=== PATIENT | female | born 1985 | race Caucasian/White ===

== ENCOUNTER 2017-09-28 12:14 | Inpatient (IN) ==
[2017-09-28] MEDS ORDERED: MORPHINE 10 MG/ML SYRINGE IVP STA ×3 (12:32→15:18)
[2017-09-28] MEDS ORDERED: ZOFRAN 4 MG/2 ML IVP STA (12:32)
[2017-09-28] MEDS ORDERED: SODIUM CHLORIDE 1,000 ML IV STA (14:12)
--- NOTE | 2017-09-28 15:06 | CT ---
EXAM: CT Abdomen with contrast. CT Pelvis with contrast. HISTORY: Mid upper abdominal pain radiating to the back. Previous cholecystectomy. COMPARISON: None available. TECHNIQUE: Multiple axial images of the abdomen and pelvis were obtained following intravenous admin istration of 75 mL of Omnipaque-300, low osmolar. Images were reformatted in the coronal plane. FINDINGS: The lung bases are clear. Osseous structures are within normal limits. Gallbladder is absent. No fluid collections are seen at the cholecystectomy site. The liver, pancre as, spleen, adrenal glands, and kidneys are unremarkable. The bowel is normal in course and caliber without evidence for obstruction or inflammatory process. The appendix is normal. Uterus demonstrates normal contour. Urinary bladder is not well distended. No free fluid, free air or lymphadenopathy identified. IMPRESSION: No acute abnormality within the abdomen or pelvis.
--- NOTE | 2017-09-28 15:09 | ED.PDOC ---
General ED Provider: Dr. SENDY YO Chief Complaint: Abdominal Pain Stated Complaint: ABDOMINAL PAIN Time Seen by Physician: 12:20 Mode of Arrival: Walk-In Information Source: Patient Exam Limitations: No limitations Nursing and Triage Documentation Reviewed and Agree: Yes (SEEN WITH NURSE AND SPOSE AT ALL TIMES ) GI Complaint Exam - Abdominal Pain Complaint/Exam Onset: Gradual Duration: 1 DAY Symptoms Are: Still present Timing: Constant Initial Severity: Moderate Current Severity: Moderate Location of Pain: Epigastric Radiates To: Denies: Back, Flank Character: Reports: Cramping Aggravating: Reports: None Alleviating: Reports: Medication Associated Signs and Symptoms: Reports: Nausea, Vomiting. Denies: Diaphoresis, Fever, Cough, Chest pain, Dizziness, Back pain, Constipation, Blood in stool, Dysuria, Urinary frequency, Decreased urine output, Decreased appetite, Vaginal bleeding, Vaginal discharge, Diarrhea, Sore throat, Decreased activity Related History: Reports: Similar episode AAA Risk Factors: Reports: None Cardiac Risk Factors: Reports: None Ectopic Risk Factors: Reports: None Ovarian Torsion Risk Factors: Reports: Reproductive age Surgical Obstruction Risk Factors: Reports: None Related Surgical History: Reports: None Abdominal Findings: Present: None Differential Diagnoses: Appendicitis, Bowel Obstruction, Constipation, Gastroenteritis, Pancreatitis Review of Systems - Review Of Systems Constitutional: Reports: No symptoms Eyes: Reports: No symptoms Ears, Nose, Mouth, Throat: Reports: No symptoms Respiratory: Reports: No symptoms Cardiac: Reports: No symptoms GI: Reports: Abdominal pain : Reports: No symptoms Musculoskeletal: Reports: No symptoms Skin: Reports: No symptoms Neurological: Reports: No symptoms Endocrine: Reports: No symptoms Hematologic/Lymphatic: Reports: No symptoms All Other Systems: Reviewed and Negative Past Medical History - Past Medical History Previously Healthy: Yes Endocrine: Reports: None Cardiovascular: Reports: None Respiratory: Reports: None Hematological: Reports: None Gastrointestinal: Reports: None Genitourinary: Reports: None Neuro/Psych: Reports: None Musculoskeletal: Reports: None Cancer: Reports: None Last Menstrual Period: 3 WEEKS - Surgical History General Surgical History: Reports: None - Family History Family History: Reports: None - Social History Smoking Status: Never smoker Hx Substance Use: No Alcohol Screening: None Physical Exam - Physical Exam Appearance: Well-appearing, No pain distress, Well-nourished Eyes: LISANDRA, EOMI, Conjunctiva clear ENT: Ears normal, Nose normal, Oropharynx normal Respiratory: Airway patent, Breath sounds clear, Breath sounds equal, Respirations nonlabored Cardiovascular: RRR, Pulses normal, No rub, No murmur GI/: Tender ( EPIGATRIC) Musculoskeletal: Normal strength, ROM intact, No edema, No calf tenderness Skin: Warm, Dry, Normal color Neurological: Sensation intact, Motor intact, Reflexes intact, Cranial nerves intact, Alert, Oriented Psychiatric: Affect appropriate, Mood appropriate Physician Notification - Case Discussed Physician Notified: GARY Time of Notification: 15:15 Admit To: Inpatient Critical Care Note - Critical Care Note Total Time (mins): 0 Course - Course Hematology/Chemistry: 09/28/17 12:43 09/28/17 12:43 Orders, Labs, Meds: Lab Review 09/28/17 09/28/17 09/28/17 12:43 12:43 12:43 WBC 10.51 H RBC 4.65 Hgb 13.5 Hct 40.6 MCV 87.3 MCH 29.0 MCHC 33.3 RDW Coeff of Scot 13.4 Plt Count 222 Immature Gran % (Auto) 0.4 Neut % (Auto) 82.2 Lymph % (Auto) 11.9 [place] % (Auto) 3.8 Eos % (Auto) 1.5 Baso % (Auto) 0.2 Immature Gran # (Auto) 0.0 Neut # 8.6 H Lymph # 1.3 [place] # 0.4 Eos # 0.2 Baso # 0.0 Sodium 138 Potassium 3.4 L Chloride 107 Carbon Dioxide 20 L Anion Gap 14.4 BUN 16 Creatinine 0.81 Estimated GFR (MDRD) 81.00 BUN/Creatinine Ratio 19.75 Glucose 134 H Lactic Acid Calcium 9.1 Total Bilirubin 0.82 AST 86 H ALT 43 Alkaline Phosphatase 85 Total Protein 8.1 Albumin 3.9 Globulin 4.2 Albumin/Globulin Ratio 0.93 Amylase 93 Lipase 316 H Procalcitonin Serum , Qual Negative Urine Color Urine Clarity Urine pH Ur Specific [place] Urine Protein Urine Glucose (UA) Urine Ketones Urine Blood Urine Nitrite Urine Bilirubin Urine Urobilinogen Ur Leukocyte Esterase Influenza A (Rapid) Influenza B (Rapid) 09/28/17 09/28/17 12 12:43 12:43 12:50 WBC RBC Hgb Hct MCV MCH MCHC RDW Coeff of Scot Plt Count Immature Gran % (Auto) Neut % (Auto) Lymph % (Auto) [place] % (Auto) Eos % (Auto) Baso % (Auto) Immature Gran # (Auto) Neut # Lymph # [place] # Eos # Baso # Sodium Potassium Chloride Carbon Dioxide Anion Gap BUN Creatinine Estimated GFR (MDRD) BUN/Creatinine Ratio Glucose Lactic Acid 12.8 Calcium Total Bilirubin AST ALT Alkaline Phosphatase Total Protein Albumin Globulin Albumin/Globulin Ratio Amylase Lipase Procalcitonin < 0.05 Serum , Qual Urine Color Urine Clarity Urine pH Ur Specific [place] Urine Protein Urine Glucose (UA) Urine Ketones Urine Blood Urine Nitrite Urine Bilirubin Urine Urobilinogen Ur Leukocyte Esterase Influenza A (Rapid) Negative Influenza B (Rapid) Negative 09/28/17 13:23 WBC RBC Hgb Hct MCV MCH MCHC RDW Coeff of Scot Plt Count Immature Gran % (Auto) Neut % (Auto) Lymph % (Auto) [place] % (Auto) Eos % (Auto) Baso % (Auto) Immature Gran # (Auto) Neut # Lymph # [place] # Eos # Baso # Sodium Potassium Chloride Carbon Dioxide Anion Gap BUN Creatinine Estimated GFR (MDRD) BUN/Creatinine Ratio Glucose Lactic Acid Calcium Total Bilirubin AST ALT Alkaline Phosphatase Total Protein Albumin Globulin Albumin/Globulin Ratio Amylase Lipase Procalcitonin Serum , Qual Urine Color Yellow Urine Clarity Clear Urine pH 5.5 Ur Specific [place] >=1.030 Urine Protein Negative Urine Glucose (UA) Negative Urine Ketones Negative Urine Blood Negative Urine Nitrite Negative Urine Bilirubin Negative Urine Urobilinogen 0.2 Ur Leukocyte Esterase Negative Influenza A (Rapid) Influenza B (Rapid) Orders Category Date Time Status NPO REMINDER: IMAGING ONCE CARE 09/28/17 14:12 Active ED IV/MEDIPORT/POWERPORT .ONCE EMERGENCY 09/28/17 12:32 Active AMYLASE Stat LAB 09/28/17 12:43 Completed BLOOD CULTURE (ED ONLY) Stat LAB 09/28/17 12:43 Received CBC W/ AUTO DIFF Stat LAB 09/28/17 12:43 Completed COMPREHENSIVE METABOLIC PANEL Stat LAB 09/28/17 12:43 Completed LACTIC ACID Stat LAB 09/28/17 12:43 Completed LIPASE Stat LAB 09/28/17 12:43 Completed MOLECULAR GROUP A STREP Stat LAB 09/28/17 12:50 Results PROCALCITONIN Stat LAB 09/28/17 12:43 Completed RAPID FLU A/B Stat LAB 09/28/17 12:50 Completed SERUM Stat LAB 09/28/17 12:43 Completed STREP SCREEN Stat LAB 09/28/17 12:50 Results URINALYSIS C & S IF INDICATED Stat LAB 09/28/17 13:23 Completed 0.9 % Sodium Chloride [Saline Flush] MEDS 09/28/17 12:32 Active 1 syr IVF PRN PRN Morphine Sulfate [Morphine 10 mg/ml Syringe] MEDS 09/28/17 12:32 Discontinued 4 mg IVP ONCE STA Morphine Sulfate [Morphine 10 mg/ml Syringe] MEDS 09/28/17 14:12 Discontinued 4 mg IVP ONCE STA Ondansetron HCl/Pf [Zofran 4 mg/2 ml] MEDS 09/28/17 12:32 Discontinued 4 mg IVP ONCE STA Sodium Chloride 0.9% [Sodium Chloride] 1,000 ml MEDS 09/28/17 14:[address] ABDOMEN/PELVIS W CONTRAST Stat RADS 09/28/17 14:11 Completed Medications Generic Name Dose Route Start Last Admin Trade Name Freq PRN Reason Stop Dose Admin Sodium Chloride 1,000 mls @ 1,000 mls/hr 09/28/17 14:12 09/28/17 14:20 Sodium Chloride IV 09/28/17 15:11 1,000 mls/hr BOLUS STA Administration Sodium Chloride 1 syr 09/28/17 12:32 09/28/17 14:22 Saline Flush IVF 1 syr PRN PRN Administration To flush IV Discontinued Medications Generic Name Dose Route Start Last Admin Trade Name Freq PRN Reason Stop Dose Admin Morphine Sulfate 4 mg 09/28/17 12:32 09/28/17 12:47 Morphine 10 Mg/Ml Syringe IVP 09/28/17 12:33 4 mg ONCE STA Administration Morphine Sulfate 4 mg 09/28/17 14:12 09/28/17 14:20 Morphine 10 Mg/Ml Syringe IVP 09/28/17 14:13 4 mg ONCE STA Administration Ondansetron HCl 4 mg 09/28/17 12:32 09/28/17 12:47 Zofran 4 Mg/2 Ml IVP 09/28/17 12:33 4 mg ONCE STA Administration Vital Signs: Temp Pulse Resp BP Pulse Ox 09/28/17 12:16 96.1 F L 96 H 24 135/78 99 Departure - Departure Time of Disposition: 15:15 Disposition: ADMITTED INPATIENT Discharge Problem: Abdominal pain Instructions: Abdominal Pain (ED) Condition: Good Pt referred to PMD for follow-up: Yes Allergies/Adverse Reactions: Allergies No Known Drug Allergies Adverse Reaction (Unverified 09/28/17 12:15) Disposition Discussed With: Patient, Family
[2017-09-28] MEDS ORDERED: MORPHINE 2 MG/ML SYRINGE IM STA (15:27)
[2017-09-28] MEDS ORDERED: MORPHINE 2 MG/ML SYRINGE IVP STA (15:41)
[2017-09-28 16:38] VITALS: BMI 32.1
[2017-09-28] MEDS: CARAFATE PO SCH ×2 (17:39→20:27)
[2017-09-28] MEDS: SODIUM CHLORIDE 1,000 ML IV SCH (17:40)
[2017-09-28] MEDS: PROTONIX IV IVP SCH (17:48)
[2017-09-28] MEDS: ZOFRAN 4 MG/2 ML IVP PRN (19:44)
[2017-09-28] MEDS ORDERED: MORPHINE 2 MG/ML SYRINGE ONE (21:42)
[2017-09-28] MEDS: MORPHINE 2 MG/ML SYRINGE IVP PRN (21:45)
[2017-09-29] MEDS: ZOFRAN 4 MG/2 ML IVP PRN (04:04)
[2017-09-29] MEDS: MORPHINE 2 MG/ML SYRINGE IVP PRN (04:04)
[2017-09-29] MEDS: SODIUM CHLORIDE 1,000 ML IV SCH ×2 (05:28→20:14)
[2017-09-29] MEDS: CARAFATE PO SCH ×4 (05:33→20:14)
[2017-09-29] MEDS ORDERED: K-DUR PO STA (06:30)
[2017-09-29] MEDS ORDERED: POTASSIUM CHLORIDE PREMIX RUN 10 MEQ in PREMIX 100 ML WATER 1 BAG IV STA (07:00)
[2017-09-29] MEDS ORDERED: POTASSIUM CHLORIDE PREMIX RUN 10 MEQ in PREMIX 100 ML WATER 1 BAG IV ONE ×3 (08:00→10:00)
[2017-09-29] MEDS ORDERED: NON-FORMULARY MEDICATION (Sertraline Hcl [Zoloft] 100 MG) PO SCH (09:00)
[2017-09-29] MEDS: PROTONIX IV IVP SCH (09:36)
[2017-09-29] MEDS: ZOLOFT PO SCH (09:42)
--- NOTE | 2017-09-29 10:18 | US ---
EXAM: Ultrasound abdomen limited right upper quadrant HISTORY: Abnormal transaminase labs and abdominal pain COMPARISON: None TECHNIQUE: Limited ultrasound abdomen right upper quadrant was performed FINDINGS: The visualized portion pancreas appears normal. Portions of the pancreas obscured seconda ry to bowel gas shadowing. Questionable "starry cele" appearance of the liver. Main portal vein hernadez nt with normal direction of flow. Patient status post cholecystectomy. No biliary duct dilation wit h common bile duct measuring 0.5 cm. IMPRESSION: 1. Questionable "starry cele" appearance of the liver, nonspecific, though can be seen in hepatitis, among other etiologies. 2. Status post cholecystectomy. No biliary duct dilation.
[2017-09-30] MEDS: CARAFATE PO SCH ×2 (05:48→10:55)
[2017-09-30] MEDS: PROTONIX IV IVP SCH (08:51)
[2017-09-30] MEDS: SODIUM CHLORIDE 1,000 ML IV SCH (08:55)
[2017-09-30] MEDS: ZOLOFT PO SCH (09:00)
[2017-09-30 09:54] VITALS: BP 138/83; TEMP 98.8
--- NOTE | 2017-09-30 11:29 | HP ---
DATE OF SERVICE: 09/28/17 CHIEF COMPLAINT: Abdominal pain with nausea and vomiting. HISTORY OF PRESENT ILLNESS: This is a 32 year old female who has been having this episodes of nausea and vomiting comes and goes for couple of years but this time started day before admission with nausea, vomiting and not able to keep anything down and epigastric pain, sharp time, shooting to the back and nausea and only vomiting the food material non bloody. She was seen by Dr. Sarabia in the emergency room. WBC 10.51, CMP showed the potassium 3.4, lipase was 316, negative. CT of abdomen and pelvis done which no acute inflammatory process. Even after given the Zofran the patient was still vomiting and not able to take rest. At that time the patient was admitted to the hospital with acute pancreatitis with elevated lipase for IV hydration and replenish of the potassium. REVIEW OF SYSTEMS: CONSTITUTIONAL: No fever, no chills. Weakness and tiredness. HEENT: Normal. ENDOCRINE: No weight gain; no weight loss. CVS: No chest pain. No PND, no orthopnea. No shortness of breath. No PND, no orthopnea. RESPIRATORY: No cough, no congestion. No hemoptysis. GI: Nausea and vomiting, nonbloody. Abdominal pain and epigastric pain, sharp type of pain. No melena. Diarrhea, non bloody. : No hematuria. No polyuria. MUSCULOSKELETAL: No joint swelling. PSYCHIATRIC: Not anxious. No depression. No suicidal thoughts. No homicidal thoughts. SKIN: Intact, no open lesions. PAST MEDICAL HISTORY: Chronic abdominal pain on and off had endoscopy done in January Anxiety History of alcohol use PAST SURGICAL HISTORY: Cholecystectomy Tonsillectomy PERSONAL HISTORY: The patient is and lives with the . Family history of diabetes and hypertension. MEDICATIONS: Zoloft ALLERGIES: No known drug allergies. PHYSICAL EXAMINATION: V/S: Blood pressure 117/78, respiratory rate 18, heart rate 82 and temperature 97.6 with saturation 99%. HEENT: Atraumatic, normocephalic. No scleral icterus. Pallor positive. Mucosa dry. NECK: Supple. No JVD, no bruit. No lymphadenopathy. No thyromegaly. HEART: S1, S2 normal. No murmur. No cyanosis or clubbing. No ascites. LUNGS: Clear to auscultation. No rales or rhonchi. ABDOMEN: Soft, Epigastric tenderness present. Bowel sounds are sluggish. No CVA tenderness. No rigidity or guarding. EXTREMITIES: No cyanosis, clubbing or pedal edema. MUSCULOSKELETAL: Normal joints, no swelling. NEUROLOGIC: The patient is SKIN: Intact; no open lesions. LYMPHATIC: No lymph nodes palpable. LABS: Sodium 138, potassium 3.4, chloride 107, bicarb 20, BUN 16, creatinine 0.81, glucose 134, Amylase 93, lipase 319, WBC 10.51, hgb 13.5, hct 40.6, plt count 222 ASSESSMENT: 1. Acute pancreatitis 2. Hypokalemia 3. Intractable nausea and vomiting 4. History of Cholecystectomy PLAN: 1. Admit the patient to regular floor 2. CBC and CMP today and daily 3. NPO 4. IV Fluids 5. Morphine for the pain 6. Will continue to monitor the CBC and CMP in the morning 7. Protonix and Carafate TIME SPENT: MORE THAN 70 minutes MTDD
--- NOTE | 2017-09-30 11:36 | PN ---
DATE OF SERVICE: 09/29/17 SUBJECTIVE: The patient abdominal pain is a lot better. Able to keep the ice chips fine. Her lipase went up to 331, liver enzymes went higher, AST 156, ALT 198, Alkaline phosphatase is 103, bilirubin in normal and potassium dropped to 2.7. REVIEW OF SYSTEMS: CONSTITUTIONAL: No fever, no chills. HEENT: Normal. ENDOCRINE: No weight gain, no weight loss. CVS: No angina symptoms. No CHF symptoms. No palpitations. No atypical chest pain for CAD. No shortness of breath. No PND, no orthopnea. RESPIRATORY: No cough, no hemoptysis. GI: No nausea, no vomiting. No abdominal pain. : No hematuria. No polyuria. MUSCULOSKELETAL:. No joint swelling. PSYCHIATRIC: Not anxious. No depression. No suicidal thoughts. No homicidal thoughts. SKIN: Intact. No rash. PHYSICAL EXAMINATION: V/S: Blood pressure 116/81, respiratory rate 20, heart rate is 79, temperature 98.5 with saturation 98% on room air. HEENT: Normocephalic, atraumatic. Mucosa dry. Pallor positive. No icterus. NECK: Supple. No JVD, no carotid bruit. No lymphadenopathy. LUNGS: Bilateral entry is decreased and clear to auscultation. No rales or rhonchi. HEART: S1, S2 normal. No S3. No murmur, gallop or regurgitation. ABDOMEN: Soft, nontender. Bowel sounds active. No rigidity. No rebound or guarding. No CVA tenderness. EXTREMITIES: No clubbing, cyanosis or pedal edema. MUSCULOSKELETAL: No joint swelling. NEUROLOGIC: Awake, alert, oriented times three. No focal deficit. LYMPHATIC: No lymph nodes palpable. SKIN: Intact. LABS: Sodium 142, potassium 2.7, chloride 116, bicarb 18, BUN 6, creatinine 0.54, glucose 76, AST 156, ALT 198, Alkaline phosphatase is 103. Hgb is 11.8 ASSESSMENT: 1. Acute pancreatitis 2. Severe hypokalemia 3. Anemia probably from the hemodilution 4. Elevated liver enzymes, rule out hepatitis PLAN: 1. Clear liquid diet 2. Ultrasound of the liver 3. Will check for the serum Tylenol levels and amylase levels 4. Urine drug screen 5. Hepatitis serology TIME SPENT: More than 35 minutes MTDD
[2017-09-30] MEDS ORDERED: MYLANTA SUSP PO STA (13:40)
--- NOTE | 2017-10-16 13:49 | DS ---
DATE OF SERVICE: 09/30/17 FINAL DIAGNOSIS: 1. Abdominal pain 2. Severe Hypokalemia 3. Elevated liver enzymes most likely from the acute hepatitis, regular hepatitis panel is negative. Still under the evaluation. 4. Intractable nausea and vomiting which is better 5. Anemia, hgb 11.4 6. History of Cholecystectomy 7. History of endoscopy in January 2017 8. Anxiety 9. History of alcohol use 10.Cholecystectomy 11.Dehydration DISCHARGE INSTRUCTIONS: Discharge the patient home. Followup with [facility] within 4-[address] Swanson for the endoscopy and colonoscopy. Resume home medications. Get plenty of rest. Discussed about the elevated liver function and avoid the Tylenol, Ibuprofen and alcohol for the time being until seen by Dr. Swanson. MEDICATIONS AT DISCHARGE: Dexilant 60mg Po daily Zoloft 100mg PO daily NEW PRESCRIPTIONS: Zofran 4mg Q 6-8 hours DIET INSTRUCTIONS: Healthy heart as tolerated. ACTIVITY: Get plenty of rest at home. Gradually increase activity level according to toleration. SMOKING: Never smoker DISEASE SPECIFIC EDUCATION: Follow up New medication HOSPITAL COURSE: Liberty Locke 32 year old female came to the emergency room with severe nausea and vomiting and found to have severe hypokalemia, 3.4. WBC was 10.51. CT of abdomen showed no acute abnormality. At that time the patient was admitted to the hospital and started on the IV fluids, Zofran, potassium for the hypokalemia and Morphine was given for the pain. Gradually the patient started feeling better and started on the clear liquid diet. Then her liver enzymes were elevated 156 AST and 198 ALT. C-Reactive Protein was high 13.2, potassium dropped to 2.7 was replaced. Hepatitis panel was done and toxicology screen was done which is positive for only opioids and rest negative. Immunology screen was negative for Anti-smooth muscle and MARCY test. Serology was negative. At that time the patient was discharged home and had an appointment with Dr. Swanson for the outpatient evaluation for the elevated liver enzymes and acute questionable pancreatic symptoms but enzymes were normal and CAT scan was normal. The patient aware of this further evaluation and need of followup with specialist, verbalized understanding and promised to have followup with them. TIME SPENT: MORE THAN 70 MINUTES MTDD
== END 2017-09-30 15:10 | disposition home or self-care (01) | DRG 392 ==
LOC: ED 12:14 → MEDSURG B 15:29
PROVIDERS: ADMIT Emergency Medicine; ATTEND Emergency Medicine
DX: R10.9 Unspecified abdominal pain (principal); B17.9 Acute viral hepatitis, unspecified; E87.6 Hypokalemia; E86.0 Dehydration; R74.8 Abnormal levels of other serum enzymes; R11.2 Nausea with vomiting, unspecified; D64.9 Anemia, unspecified; F11.90 Opioid use, unspecified, uncomplicated; F10.21 Alcohol dependence, in remission; F41.9 Anxiety disorder, unspecified; Z90.49 Acquired absence of other specified parts of digestive tract
CPT/HCPCS: 36415; 80053; 80061; 80074; 80306; 80307; 81001; 82150; 82787; 83516; 83605; 83690; 84132; 84145; 84484; 84703; 85025; 86038; 86140; 86376; 87040; 87651; 87804; 87880; 96361; 96374; 96375; 96376; 99284

== ENCOUNTER 2017-10-08 08:55 | Outpatient (CLI) ==
[2017-10-08 09:38] LABS: BASOPHILS % (AUTO) 0.6 % (0.0-3.0); EOSINOPHILS # (AUTO) 0.2 K/ul (0.0-0.7); EOSINOPHILS % (AUTO) 2.1 % (0.0-7.0); HEMATOCRIT 39.9 % (37.0-47.0); IMMATURE GRANULOCYTE % (AUTO) 0.1 % (0.0-5.0); LYMPHOCYTES # (AUTO) 2.2 K/uL (0.60-3.4); LYMPHOCYTES % (AUTO) 30.6 (10.0-50.0); MEAN CORPUSCULAR HEMOGLOBIN 28.7 pg (27.0-31.0); MEAN CORPUSCULAR HGB CONC 32.6 (31.8-35.4); MEAN CORPUSCULAR VOLUME 88.1 fl (81.0-99.0); MONOCYTES # (AUTO) 0.5 K/uL (0.4-2.0); MONOCYTES % (AUTO) 6.9 (0-10); NEUTROPHILS # (AUTO) 4.3 K/ul (2.0-6.9); NEUTROPHILS % (AUTO) 59.7; PLATELET COUNT 252 10^3/uL (140-440); RED BLOOD COUNT 4.53 10^6/ul (4.20-5.40); WHITE BLOOD COUNT 7.15 K/ul (4.6-10.2)
[2017-10-08 09:54] LABS: ALBUMIN/GLOBULIN RATIO 1.05; ANION GAP 10.9; BILIRUBIN,TOTAL 0.5 mg/dL (0.00-1.20); BUN/CREATININE RATIO 15.78; CALCIUM 9.6 mg/dL (8.2-10.2); CREATININE 0.76 mg/dL (0.60-1.30); POTASSIUM 3.9 mmol/L (3.5-5.10); TOTAL PROTEIN 7.8 g/dL (6.4-8.2)
[2017-10-08 10:14] LABS: FERRITIN 87.31 ng/mL (4.63-204.00); PHOSPHORUS 3.5 mg/dL (2.5-4.9)
[2017-10-09 07:22] LABS: CERULOPLASMIN 32.6 mg/dL (19.0-39.0)
[2017-10-09 13:12] LABS: SMOOTH MUSCLE (ACTIN) ANTIBODY 4 Units (0-19)
== END 2017-10-08 08:56 | disposition home or self-care (01) ==
LOC: LAB 08:55
PROVIDERS: ATTEND Internal Medicine Gastroenterology
DX: R74.8 Abnormal levels of other serum enzymes (principal)
CPT/HCPCS: 36415; 80053; 82390; 82728; 82784; 83516; 84100; 85025

== ENCOUNTER 2017-12-31 09:21 | Outpatient (CLI) | END 2017-12-31 09:22 | disposition home or self-care (01) | LOC: RHC-LAB 09:21 | PROVIDERS: ATTEND Emergency Medicine | DX: K75.9 Inflammatory liver disease, unspecified (principal); R10.13 Epigastric pain | CPT/HCPCS: 36415; 80053; 82150; 83690 ==

== ENCOUNTER 2018-03-16 10:21 | Outpatient (CLI) ==
--- NOTE | 2018-03-16 11:51 | DI ---
EXAM: Radiographs, right wrist HISTORY: Initial presentation for right wrist sprain. COMPARISON: None available. TECHNIQUE: Three views. FINDINGS: Bone mineralization is normal. There is no fracture or dislocation. The joint spaces are maintained. No focal soft tissue abnormality is seen. IMPRESSION: No fracture or dislocation.
== END 2018-03-16 10:22 | disposition home or self-care (01) ==
LOC: RAD 10:21
PROVIDERS: ATTEND Emergency Medicine
DX: S63.501A Unspecified sprain of right wrist, initial encounter (principal)

== ENCOUNTER 2018-05-28 14:42 | Emergency (ER) ==
[2018-05-28 14:55] VITALS: BP 149/90; TEMP 100.4; BMI 33.3
--- NOTE | 2018-05-28 15:25 | ED.PDOC ---
General ED Provider: Dr. SENDY YO Chief Complaint: Bite Stated Complaint: dog bite right lateral tigh Time Seen by Physician: 15:00 Mode of Arrival: Walk-In Information Source: Patient Exam Limitations: No limitations [facility] Nursing and Triage Documentation Reviewed and Agree: Yes Does patient meet sepsis criteria?: No If yes, has appropriate treatment been initiated?: No System Inflammatory Response Syndrome: Not Applicable Sepsis Protocol: For patient's 13 years and over: Temp is 96.8 and below OR 101 and greater Pulse >90 BPM Resp >20/minute Acutely Altered Mental Status Are patient's symptoms suggestive of a new infection, such as: -Pneumonia -Skin, Soft Tissue -Endocarditis -UTI -Bone, Joint Infection -Implantable Device -Acute Abdominal Infection -Wound Infection -Meningitis -Blood Stream Catheter Infection -Unknown Skin Complaint Exam - Laceration/Lower Ext. Complaint/Exam Location of Injury: Right, Thigh Mechanism of Injury: Puncture Onset/Duration: 1 hr ago dog bite Symptoms Are: Still present Initial Severity: Mild Current Severity: Mild Aggravating: None Alleviating: None Associated Signs and Symptoms: Denies: Fever, Chills, Erythema, Numbness, Tingling Differential Diagnoses: Laceration Review of Systems - Review Of Systems Constitutional: Reports: No symptoms Eyes: Reports: No symptoms Ears, Nose, Mouth, Throat: Reports: No symptoms Respiratory: Reports: No symptoms Cardiac: Reports: No symptoms GI: Reports: No symptoms : Reports: No symptoms Musculoskeletal: Reports: No symptoms Skin: Reports: Other (laceration see photo) Neurological: Reports: No symptoms Endocrine: Reports: No symptoms Hematologic/Lymphatic: Reports: No symptoms All Other Systems: Reviewed and Negative Past Medical History - Past Medical History Previously Healthy: Yes Endocrine: Reports: None Cardiovascular: Reports: None Respiratory: Reports: None Hematological: Reports: None Gastrointestinal: Reports: None Genitourinary: Reports: None Neuro/Psych: Reports: None Musculoskeletal: Reports: None Cancer: Reports: None Last Menstrual Period: 2 WEEKW - Surgical History General Surgical History: Reports: None - Family History Family History: Reports: None - Social History Smoking Status: Never smoker Hx Substance Use: No Alcohol Screening: Occasionally - Immunizations Tetanus Shot up to Date: Yes Physical Exam - Physical Exam Appearance: Well-appearing, No pain distress, Well-nourished Eyes: LISANDRA, EOMI, Conjunctiva clear ENT: Ears normal, Nose normal, Oropharynx normal Respiratory: Airway patent, Breath sounds clear, Breath sounds equal, Respirations nonlabored Cardiovascular: RRR, Pulses normal, No rub, No murmur GI/: Soft, Nontender, No masses, Bowel sounds normal, No Organomegaly Musculoskeletal: Normal strength, ROM intact, No edema, No calf tenderness Skin: Warm, Dry (1 cm laceration right lateral tigh no F/B) Neurological: Sensation intact, Motor intact, Reflexes intact, Cranial nerves intact, Alert, Oriented Psychiatric: Affect appropriate, Mood appropriate Critical Care Note - Critical Care Note Total Time (mins): 0 Course - Course Vital Signs: Temp Pulse Resp BP Pulse Ox 05/28/18 14:43 100.4 F H 88 20 149/90 H 98 Departure - Departure Time of Disposition: 15:24 (see photos) Disposition: HOME SELF-CARE Discharge Problem: Dog bite Qualifiers: Encounter type: initial encounter Qualified Code(s): W54.0XXA - Bitten by dog, initial encounter Puncture wound of right thigh Qualifiers: Encounter type: initial encounter Qualified Code(s): S71.131A - Puncture wound without foreign body, right thigh, initial encounter Instructions: Animal Bite (ED), Puncture Wound (ED), Laceration (ED) Condition: Good Pt referred to PMD for follow-up: Yes IPMP verified?: No Allergies/Adverse Reactions: Allergies No Known Drug Allergies Adverse Reaction (Unverified 09/28/17 12:15) Home Medications: Ambulatory Orders Dexlansoprazole [Dexilant] 60 mg PO DAILY 09/28/17 Sertraline HCl [Zoloft] 100 mg PO DAILY 09/28/17 Amoxicillin/Potassium Clav [Augmentin 875-125 mg Tab] 1 tab PO Q12HR #10 tablet 05/28/18
== END 2018-05-28 15:37 | disposition home or self-care (01) ==
LOC: ED 14:42
DX: S70.371A Other superficial bite of right thigh, initial encounter (principal); S71.131A Puncture wound without foreign body, right thigh, initial encounter; W54.0XXA Bitten by dog, initial encounter
CPT/HCPCS: 99282